=== PATIENT | female | born 1970 | race Caucasian/White ===

== ENCOUNTER 2017-10-13 17:15 | Emergency (ER) | payer BC ==
--- NOTE | 2017-10-13 19:00 | RAD ---
INDICATION: Right ankle pain COMPARISON: None TECHNIQUE: AP, lateral, and oblique views were obtained. FINDINGS: There are no acute bony findings. The ankle mortise is intact. There is medial soft tissue swelling. IMPRESSION: NO ACUTE FRACTURE.
--- NOTE | 2017-10-13 19:01 | RAD ---
INDICATION: Right lower extremity injury COMPARISON: None TECHNIQUE: AP and lateral views were obtained. FINDINGS: There is no acute bony change. There is mild subcutaneous edema about the medial leg. IMPRESSION: NO ACUTE BONY FINDINGS.
--- NOTE | 2017-10-13 19:09 | ED ---
Lower Extremity - HPI Summary HPI Summary: Patient complains of fall while riding a horse 5 days ago, with horse falling on her right lower leg with subsequent swelling and bruising. Denies any other injury or symptoms. Patient is ambulatory, has been working. States swelling and bruising has not gone down. Denies fever, loss of sensation or function, cough, sore throat, CP, SOB, N/V/D, abdominal pain, change in urinary BM. Medical history is none. No anti-coag. - History of Current Complaint Chief Complaint: EDExtremityLower Stated Complaint: RT LEG SWOLLEN Time Seen by Provider: 10/13/17 17:55 Hx Obtained From: Patient Mechanism Of Injury: Blunt Trauma Onset of Pain: Immediate Onset/Duration: Days Severity Initially: Moderate Severity Currently: Mild Pain Intensity: 1 Pain Scale Used: 0-10 Numeric Timing: Intermittent Location: Is Discrete @ Character Of Pain: Throbbing Associated Signs And Symptoms: Positive: Swelling, Bruising Aggravating Factor(s): Standing Able to Bear Weight: Yes - Allergies/Home Medications Allergies/Adverse Reactions: Allergies Allergy/AdvReac Type Severity Reaction Status Date / Time No Known Allergies Allergy Verified 10/13/17 17:24 Home Medications: Home Medications Desogestrel-Ethinyl Estradiol [Rick 28 Day Tablet] 1 tab PO DAILY 10/13/17 [ History Confirmed 10/13/17] PMH/Surg Hx/FS Hx/Imm Hx Endocrine/Hematology History: Denies: Hx Anticoagulant Therapy History: Denies: Hx Dialysis Neurological History: Denies: Hx CVA - Cancer History Hx Chemotherapy: No Hx Radiation Therapy: No Infectious Disease History: No Infectious Disease History: Denies: Traveled Outside the [place] in Last 30 Days - Social History Alcohol Use: Rare Substance Use Type: Reports: None Smoking Status (MU): Never Smoked Tobacco Review of Systems Constitutional: Negative Eyes: Negative ENT: Negative Cardiovascular: Negative Respiratory: Negative Gastrointestinal: Negative Genitourinary: Negative Musculoskeletal: Other Positive: Bruising Neurological: Negative Psychological: Normal All Other Systems Reviewed And Are Negative: Yes Physical Exam - Summary Physical Exam Summary: Ecchymosis and mild swelling to right lower extremity distal to the knee and including ankle. Calf soft nontender. Full range of motion of right ankle and right knee without pain. No obvious deformity, extra warmth. PMS intact distally Triage Information Reviewed: Yes Vital Signs On Initial Exam: Initial Vitals Temp Pulse Resp BP Pulse Ox 99.4 F 73 16 141/75 100 10/13/17 17:24 10/13/17 17:24 10/13/17 17:24 10/13/17 17:24 10/13/17 17:24 Vital Signs Reviewed: Yes Appearance: Positive: Well-Appearing Skin: Positive: Warm Head/Face: Positive: Normal Head/Face Inspection Eyes: Positive: Normal Neck: Positive: Supple Respiratory/Lung Sounds: Positive: Clear to Auscultation Cardiovascular: Positive: Normal Abdomen Description: Positive: Nontender Musculoskeletal: Positive: Normal Neurological: Positive: Normal Psychiatric: Positive: Normal AVPU Assessment: Alert - Amado Coma Scale Best Eye Response: 4 - Spontaneous Best Motor Response: 6 - Obeys Commands Best Verbal Response: 5 - Oriented Coma Scale Total: 15 Diagnostics - Vital Signs Vital Signs Temp Pulse Resp BP Pulse Ox 10/13/17 17:24 99.4 F 73 16 141/75 100 - Laboratory Lab Statement: Any lab studies that have been ordered have been reviewed, and results considered in the medical decision making process. Lower Extremity Course/Dx - Course Course Of Treatment: Patient complains of fall while riding a horse 5 days ago, with horse falling on her right lower leg with subsequent swelling and bruising. Denies any other injury or symptoms. Patient is ambulatory, has been working. States swelling and bruising has not gone down. Denies fever, loss of sensation or function, cough, sore throat, CP, SOB, N/V/D, abdominal pain, change in urinary BM. Medical history is none. No anti-coag. Physical exam:Ecchymosis and mild swelling to right lower extremity distal to the knee and including ankle. Calf soft nontender. Full range of motion of right ankle and right knee without pain. No obvious deformity, extra warmth. PMS intact distally. X-ray negative. Ice, elevation and ibuprofen. - Diagnoses Provider Diagnoses: Traumatic ecchymosis of left lower leg Discharge - Sign-Out/Discharge Documenting (check all that apply): Patient Departure - Discharge Plan Condition: Stable Disposition: HOME Patient Education Materials: Contusion in Adults (ED) Referrals: Micheal Peterson MD [Primary Care Provider] - Additional Instructions: Ice, elevation, ibuprofen for pain and swelling. Return to the ED for any new or worsening symptoms - Billing Disposition and Condition Condition: STABLE Disposition: Home
[2017-10-13 19:18] VITALS: BP 128/88
== END 2017-10-13 19:17 | disposition home or self-care (01) ==
LOC: ED 17:15
DX: S80.11XA Contusion of right lower leg, initial encounter (principal); V80.010A Animal-rider injured by fall from or being thrown from horse in noncollision accident, initial encounter; Y93.52 Activity, horseback riding; Y92.9 Unspecified place or not applicable
CPT/HCPCS: 99282